=== PATIENT | male | born 1970 | race Caucasian/White ===

== ENCOUNTER → 2019-08-09 | Outpatient (CLI) | payer BC ==
--- NOTE | 2019-08-09 16:39 | RAD ---
EXAM DESCRIPTION: Ankle x-ray,Left 3 Views CLINICAL HISTORY: 48 years, Male, SWELLING OF ANKLE JOINT COMPARISON: None. TECHNIQUE: AP/lateral/oblique of the left ankle FINDINGS: Intact medial and lateral malleolus. There is mild to moderate soft tissue swelling laterally and medially. Intact proximal metatarsals. Intact dome of the talus. Lateral view shows no evidence of fracture of the body of the talus or calcaneus. Prominent dorsal and plantar calcaneal spurring is seen. Positive spurring at the anterior ankle joint. There is loss in the normal plantar arch. Disorganized appearance of the midfoot may be neuropathic. See separate report for x-ray left foot. IMPRESSION: Negative for fracture or dislocation of the ankle. Electronically signed by: Mauro Her MD 08/09/2019 4:37 PM CDT
--- NOTE | 2019-08-09 16:42 | RAD ---
EXAM DESCRIPTION: Foot x-ray,Left 3 Views CLINICAL HISTORY: 48 years, Male, LEFT FOOT PAIN COMPARISON: None TECHNIQUE: AP, lateral, and oblique views of the left foot FINDINGS: Disorganized appearance of the midfoot with multiple bone fragments and lateral slippage of the bases of the second through fifth metatarsals. Small fragment at the tip of the base of the fifth metatarsal. 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 Bone fragments are also seen along the medial aspect of the head of the navicular. This may indicate fragmentation of the distal aspect of the cuneiforms as well as the cuboid. Lateral view shows intact talus and calcaneus. Prominent dorsal and plantar calcaneal spurring. Loss of the plantar arch with overlapping bone fragments in the region of the midfoot and bases of the metatarsals. IMPRESSION: Neuropathic midfoot fracture dislocation. Electronically signed by: Mauro Her MD 08/09/2019 4:40 PM CDT
== END ==
LOC: RAD 14:14
PROVIDERS: ATTEND Nurse Practitioner
DX: S93.325A Dislocation of tarsometatarsal joint of left foot, initial encounter (principal); M25.472 Effusion, left ankle

== ENCOUNTER → 2019-08-11 | Outpatient (CLI) | payer BC ==
--- NOTE | 2019-08-11 15:58 | US ---
EXAM DESCRIPTION: Venous,Lower Extremity LT: ULTRASOUND. CLINICAL HISTORY: LOCALIZED SWELLING, MASS AND LUMP LEFT LOWER LIMB COMPARISON: None Available. TECHNIQUE: Huang-scale and doppler sonographic evaluation of the deep venous system of the left lower extremity. FINDINGS: Doppler evaluation shows normal color flow and normal phasicity and augmentation of the left common femoral vein, femoral vein, popliteal vein, greater saphenous vein, junction with the CFV. Also normal color flow and normal phasicity and augmentation of the peroneal, and posterior tibial vein. The left lower extremity deep veins were completely compressible; normal occlusion with transducer pressure. Huang-scale survey showed no echogenic thrombus within these veins. Edema in the subcutaneous adipose tissue of the calf IMPRESSION: 1. Duplex ultrasound evaluation of the left lower extremity deep venous system showing no evidence of thrombosis. 2. Edema in the subcutaneous adipose tissue of the calf. Electronically signed by: Ruiz Coe MD 08/11/2019 3:56 PM CDT
== END ==
LOC: US 10:39
PROVIDERS: ATTEND Nurse Practitioner
DX: R60.0 Localized edema (principal)